=== PATIENT | female | born 1940 | race Caucasian/White ===

== ENCOUNTER 2018-10-06 09:55 | Emergency (ER) | payer MEDICARE ==
[2018-10-06 10:13] VITALS: BP 154/54
--- NOTE | 2018-10-06 10:22 | UC ---
General HPI - HPI Summary HPI Summary: WORSENING COUGH WITH CONGESTION AND SPUTUM X 2 WEEKS. NO CP OR FEVER. HX COPD WITH PRN OXYGEN AND NEB TX'S. - History of Current Complaint Chief Complaint: UCGeneralIllness Stated Complaint: CONGESTION COUGH Time Seen by Provider: 10/06/18 10:12 Hx Obtained From: Patient Onset/Duration: Gradual Onset Timing: Constant Pain Intensity: 0 Associated Signs & Symptoms: Positive: Cough, SOB. Negative: Chest Pain, Fever , Palpitations - Allergy/Home Medications Allergies/Adverse Reactions: Allergies Allergy/AdvReac Type Severity Reaction Status Date / Time No Known Allergies Allergy Verified 10/06/18 10:13 PMH/Surg Hx/FS Hx/Imm Hx Respiratory History: COPD - Surgical History Surgical History: Yes Surgery Procedure, Year, and Place: knee operation - Family History Known Family History: Positive: Non-Contributory - Social History Occupation: Retired Alcohol Use: None Substance Use Type: None Smoking Status (MU): Former Smoker Type: Pipe When Did the Patient Quit Smoking/Using Tobacco: 1999 - Immunization History Vaccination Up to Date: Yes Review of Systems All Other Systems Reviewed And Are Negative: Yes Constitutional: Negative: Fever, Chills Respiratory: Positive: Shortness Of Breath, Cough Cardiovascular: Negative: Palpitations, Chest Pain Physical Exam Triage Information Reviewed: Yes Appearance: Well-Appearing Vital Signs: Initial Vital Signs Temp 99.5 F 10/06/18 10:06 Pulse 56 10/06/18 10:06 Resp 18 10/06/18 10:06 BP 154/54 10/06/18 10:06 Pulse Ox 96 10/06/18 10:06 Vital Signs Reviewed: Yes Eyes: Positive: Conjunctiva Clear ENT: Positive: Normal ENT inspection Neck: Positive: Supple, Nontender, No Lymphadenopathy Respiratory: Positive: Lungs clear, No respiratory distress, Decreased breath sounds. Negative: Crackles, Rhonchi, Wheezing Cardiovascular: Positive: RRR, No Murmur Abdomen Description: Positive: Nontender Musculoskeletal: Positive: ROM Intact Neurological: Positive: Alert Psychological: Positive: Age Appropriate Behavior Skin Exam: Normal Course/Dx - Differential Dx - Multi-Symptom Differential Diagnoses: Other - NON TOXIC. NOT HYPOXIC. NO CP. C/W COPD FLARE. - Diagnoses Provider Diagnosis: COPD (chronic obstructive pulmonary disease) Discharge - Sign-Out/Discharge Documenting (check all that apply): Patient Departure All imaging exams completed and their final reports reviewed: No Studies - Discharge Plan Condition: Stable Disposition: HOME Prescriptions: Albuterol 2.5MG/3ML (0.083%)* [Ventolin 2.5 MG/3 ML NEB.JONAH*] 2.5 mg INH Q6H #1 neb.jonah Azithromycin TAB* [Zithromax TAB (Z-ROZINA) 250 mg #6 tabs] 2 tab PO .TODAY, THEN 1 DAILY #1 rozina predniSONE [Prednisone 20 MG TAB] 40 mg PO DAILY 5 Days #10 tablet Patient Education Materials: COPD (Chronic Obstructive Pulmonary Disease) (DC) Referrals: Vincent Pitts [Primary Care Provider] - 5 Days - Billing Disposition and Condition Condition: STABLE Disposition: Home
== END 2018-10-06 10:36 | disposition home or self-care (01) ==
LOC: UCCORT 09:55
DX: J44.9 Chronic obstructive pulmonary disease, unspecified (principal); Z87.891 Personal history of nicotine dependence
CPT/HCPCS: 99212; G0463

== ENCOUNTER 2019-01-06 13:41 | Emergency (ER) | payer MEDICARE ==
[2019-01-06 13:50] VITALS: BP 132/47
--- NOTE | 2019-01-06 14:27 | UC ---
Respiratory Complaint HPI - HPI Summary HPI Summary: 78 y/o female with medical hx of COPD on home O2 2 days hx of increase productive cough with green sputum , fever, chills sob . worse with exertion , better with rest denies any chest pain - History of Current Complaint Chief Complaint: UCRespiratory Stated Complaint: FEVER,SOB-HX:SOB Time Seen by Provider: 01/06/19 13:47 Hx Obtained From: Patient, Family/Upper Cutter Machine Onset/Duration: Gradual Onset, Lasting Days - 2, Still Present Timing: Constant Severity Initially: Severe Severity Currently: Severe Pain Intensity: 0 Character: Cough: Productive - green sputum Aggravating Factors: Exertion, Deep Breaths Alleviating Factors: Nothing Associated Signs And Symptoms: Positive: Dyspnea, Fever, Chills, Wheezing, URI. Negative: Pleuritic Chest Pain, Hemoptysis, Dizziness, Calf Pain, Calf Swelling, Edema - Allergies/Home Medications Allergies/Adverse Reactions: Allergies Allergy/AdvReac Type Severity Reaction Status Date / Time No Known Allergies Allergy Verified 01/06/19 13:43 Home Medications: Home Medications Albuterol 2.5MG/3ML (0.083%)* [Ventolin 2.5 MG/3 ML NEB.JONAH*] 2.5 mg INH Q6H PRN 01/06/19 [History] PMH/Surg Hx/FS Hx/Imm Hx Respiratory History: COPD - Surgical History Surgical History: Yes Surgery Procedure, Year, and Place: knee operation - Family History Known Family History: Positive: Non-Contributory Negative: Diabetes - Social History Alcohol Use: None Substance Use Type: None Smoking Status (MU): Former Smoker Type: Cigarettes, Pipe When Did the Patient Quit Smoking/Using Tobacco: 1999 - Immunization History Vaccination Up to Date: Yes Review of Systems All Other Systems Reviewed And Are Negative: Yes Constitutional: Positive: Fever, Chills, Fatigue Skin: Positive: Negative Eyes: Positive: Negative ENT: Positive: Negative Respiratory: Positive: Shortness Of Breath, Cough Cardiovascular: Negative: Palpitations, Chest Pain Is Patient Immunocompromised?: No Physical Exam Triage Information Reviewed: Yes Appearance: Ill-Appearing Vital Signs: Initial Vital Signs Temp 100.6 F 01/06/19 13:45 Pulse 92 01/06/19 13:45 Resp 44 01/06/19 13:45 BP 132/47 01/06/19 13:45 Pulse Ox 97 01/06/19 13:45 Vital Signs Reviewed: Yes Eye Exam: Normal Eyes: Positive: Conjunctiva Clear ENT: Positive: Normal ENT inspection, Hearing grossly normal, Pharynx normal Neck: Positive: Supple, Nontender, No Lymphadenopathy Respiratory: Positive: No respiratory distress, Respiratory distress, Decreased breath sounds, Crackles - left lower lungs, Other: - tachypnea Cardiovascular: Positive: RRR, No Murmur Abdominal Exam: Normal Abdomen Description: Positive: Nontender, Soft Skin Exam: Normal Diagnostics - Radiology No standard instances Radiology Interpretation Completed By: ED Physician, Radiologist Summary of Radiographic Findings: chest xray report: IMPRESSION: Hyperinflated lung hernandez without evidence of pneumonia. Respiratory Course/Dx - Differential Dx/Diagnosis Provider Diagnosis: Bronchitis, COPD exacerbation Discharge ED - Sign-Out/Discharge Documenting (check all that apply): Patient Departure All imaging exams completed and their final reports reviewed: Yes - Discharge Plan Condition: Fair Disposition: HOME Patient Education Materials: COPD (Chronic Obstructive Pulmonary Disease) (ED) Referrals: Vincent Pitts [Primary Care Provider] - Additional Instructions: please go to [facility] ED for evaluation and tx - Billing Disposition and Condition Condition: FAIR Disposition: Home
== END 2019-01-06 14:30 | disposition home or self-care (01) ==
LOC: UCCORT 13:41
DX: Z99.81 Dependence on supplemental oxygen (principal); J44.1 Chronic obstructive pulmonary disease with (acute) exacerbation; Z87.891 Personal history of nicotine dependence
CPT/HCPCS: 71046; 99212; G0463